=== PATIENT | male | born 1965 | race Caucasian/White ===

== ENCOUNTER 2019-04-01 13:08 | Inpatient (IN) | payer OTHER ==
[~2019-04-01] VITALS: Ht 177.8 cm; Wt 70.3 kg
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
--- NOTE | 2019-04-01 13:45 | NUR ---
SEEN AND EXAMINED BY DR. DAVISON.
[2019-04-01] MEDS ORDERED: QUET300T2 PO (13:57)
[2019-04-01] MEDS ORDERED: ALPR2TAB7 PO (13:57)
[2019-04-01] MEDS ORDERED: PANTOPRAZOLE 80 MG in IV NS 0.9% 100 ML IV ONE (14:00)
[2019-04-01] MEDS ORDERED: OCTREOTIDE 50 MCG/ML AMPUL IV ONE (14:00)
[2019-04-01] MEDS ORDERED: OCTREOTIDE 1,250 MCG in IV NS 0.9% 247.5 ML IV PRN (14:00)
[2019-04-01] MEDS ORDERED: IV NS 0.9% 1,000 ML BAG IV ONE (14:00)
[2019-04-01] MEDS ORDERED: OCTREOTIDE 1,250 MCG in IV NS 0.9% 250 ML IV ONE (14:00)
[2019-04-01] MEDS ORDERED: OCTREOTIDE 1,250 MCG in IV NS 0.9% 247.5 ML IV ONE (14:00)
--- NOTE | 2019-04-01 14:03 | NUR ---
IV LINE ESTABLISHED, LABS DRAWNED AND SENT TO LAB.
[2019-04-01 14:05] LABS: BASOPHILS # (AUTO) 0.1 /CMM (0.0-0.2); BASOPHILS % (AUTO) 1.3 % (0.0-2.0); EOSINOPHILS % (AUTO) 3.4 % (0.0-6.0); HEMATOCRIT 30 % (39-51); HEMOGLOBIN 9.3 g/dL (13.5-17.5); LYMPHOCYTES % (AUTO) 24.6 % (20.0-44.0); MEAN CORPUSCULAR HGB CONC 31 g/dl (31.0-36.0); MEAN CORPUSCULAR VOLUME 74 fL (80-96); MONOCYTES # (AUTO) 0.4 /CMM (0.1-1.30); MONOCYTES % (AUTO) 9.3 % (2.0-12.0); NEUTROPHILS # (AUTO) 2.6 /CMM (1.8-8.9); NEUTROPHILS % (AUTO) 61.4 % (43.0-81.0); PLATELET COUNT (AUTO) 340 /CMM (150-450); RED BLOOD CELL COUNT(AUTO) 4.03 MIL/uL (4.5-6.0); WHITE BLOOD COUNT (AUTO) 4.2 K/uL (4.3-11.0)
[2019-04-01] MEDS ORDERED: PANTOPRAZOLE 40 MG VIAL ONE (14:06)
[2019-04-01 14:19] LABS: CALCIUM, SERUM 8.5 mg/dL (8.5-10.1); CREATININE 0.7 mg/dL (0.6-1.3); POTASSIUM 3.9 mmol/L (3.5-5.1)
[2019-04-01 14:28] LABS: ALBUMIN 3.3 g/dL (3.4-5.0); BILIRUBIN,DIRECT 0.1 mg/dL (0.0-0.2); BILIRUBIN,TOTAL 0.3 mg/dL (0.2-1.0); TOTAL PROTEIN, SERUM 6.7 g/dL (6.4-8.2)
[2019-04-01] MEDS ORDERED: PANTOPRAZOLE 40 MG VIAL IV ONE (14:30)
[2019-04-01] MEDS ORDERED: PANTOPRAZOLE 80 MG in IV NS 0.9% 500 ML IV ONE (14:30)
--- NOTE | 2019-04-01 15:25 | NUR ---
CALLED [facility]. 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
--- NOTE | 2019-04-01 15:53 | NUR ---
CALLED [facility] FOR TELE BED
[2019-04-01] MEDS ORDERED: QUET25TA PO ×2 (15:55)
[2019-04-01] MEDS ORDERED: THIA100T74 PO (15:55)
[2019-04-01] MEDS ORDERED: FOLI1TAB16 PO (15:55)
[2019-04-01] MEDS ORDERED: ALLO100T PO (15:55)
[2019-04-01] MEDS ORDERED: PANT40TA2 PO (15:55)
[2019-04-01] MEDS ORDERED: MULT-447 PO (15:55)
--- NOTE | 2019-04-01 16:38 | NUR ---
REPORT GIVEN TO CHRISTA MOMIN FOR DAVID.
--- NOTE | 2019-04-01 17:02 | NUR ---
FUNDRAISING DIRECTORICING MACHINE OPERATOR NOTES Received Patient from ER via [facility]. Patient ambulatory. Patient resting and asleep in bed at this time. A/O x 4. VS stable with no acute distress. Breathing even and unlabored on room air with no respiratory distress. No signs and symptoms of pain. Skin intact. 20g PIV on RIGHT WRIST clean, dry, intact and flushing well. Sandostatin running at 10ml/hr. All belongings accounted and signed for and placed in chart. Safety precautions in place. Bed locked and set to lowest position with side rails x 2 up. Will continue to monitor.
[2019-04-01] MEDS ORDERED: ZOLPIDEM TARTRATE 5 MG TABLET PO PRN (17:30)
[2019-04-01] MEDS ORDERED: Z GUARD REMEDY 2 OZ OINT TP PRN (17:30)
[2019-04-01] MEDS ORDERED: ACETAMINOPHEN 325 MG TABLET PO PRN (17:30)
[2019-04-01] MEDS ORDERED: MAGNESIUM HYDROXIDE 30 ML UDC PO PRN (17:30)
[2019-04-01] MEDS ORDERED: ONDANSETRON HCL/PF 4 MG/2 ML VIAL IVP PRN (17:30)
[2019-04-01 18:55] VITALS: BP 115/81
--- NOTE | 2019-04-01 19:30 | NUR ---
RECEIVED PATIENT IN BED ASLEEP, EASILY AROUSABLE. AO X 3, ABLE TO MAKE NEEDS KNOWN. NO ACUTE DISTRESS NOTED. DENIES ANY PAIN AT THIS TIME. IV SITE PATENT, INTACT; IVF INFUSING ORDERED.SAFETY REMINDERS GIVEN. ON LOW BED WITH BILATERAL UPPER SIDE RAILS UP. CALL EDEN WITHIN EASY REACH. WILL CONTINUE TO MONITOR.
[2019-04-01] MEDS: PANTOPRAZOLE 40 MG VIAL IV SCH (19:42)
[2019-04-01 20:00] VITALS: BP 121/74
--- NOTE | 2019-04-01 20:02 | NUR ---
LIFE SCIENCES MANAGERSIGNAL INTELLIGENCE/ELECTRONIC WARFARE NOTES Patient resting and asleep in bed. A/O x 4. VS stable with no acute distress. Breathing even and unlabored on room air with no respiratory distress. No signs and symptoms of pain. Skin intact. Tele monitor in place and operational. SR with HR-94. 20g PIV on RIGHT WRIST clean, dry, intact and flushing well. Sandostatin running at 10ml/hr. Safety precautions in place. Bed locked and set to lowest position with side rails x 2 up. Will endorse plan of care to oncoming shift. Addendum: 04/01/19 at 2037 by ALEJANDRO DAIGLE RN LIFE SCIENCES MANAGER CLOSING NOTES
[2019-04-01 20:11] VITALS: BP 121/74
[2019-04-01] MEDS: IV NS 0.9% 1,000 ML IV PRN (21:37)
[2019-04-01] MEDS: QUETIAPINE FUMARATE 100 MG TABLET PO SCH (21:53)
[2019-04-02] VITALS (8 sets, daily range): BP systolic 102–125; BP diastolic 56–79
--- NOTE | 2019-04-02 06:00 | NUR ---
PATIENT ASLEEP, EASILY AROUSABLE. RESPIRATIONS EVEN. NO SIGNS OF PAIN NOTED. DUE MEDS GIVEN WITH NO ASE NOTED. NEEDS ATTENDED. PATIENT REFUSED TO BE WASHED. SAFETY PRECAUTIONS AND COMFORT MEASURES IN PLACE. WILL GIVE REPORT TO DAY SHIFT FOR CONTINUITY OF CARE.
[2019-04-02 06:21] LABS: BASOPHILS # (AUTO) 0.1 /CMM (0.0-0.2); BASOPHILS % (AUTO) 1.5 % (0.0-2.0); EOSINOPHILS % (AUTO) 5.3 % (0.0-6.0); HEMATOCRIT 31 % (39-51); HEMOGLOBIN 9.7 g/dL (13.5-17.5); LYMPHOCYTES # (AUTO) 0.9 /CMM (0.8-4.8); LYMPHOCYTES % (AUTO) 24.7 % (20.0-44.0); MEAN CORPUSCULAR HGB CONC 31 g/dl (31.0-36.0); MEAN CORPUSCULAR VOLUME 75 fL (80-96); MONOCYTES # (AUTO) 0.4 /CMM (0.1-1.30); NEUTROPHILS % (AUTO) 56.5 % (43.0-81.0); PLATELET COUNT (AUTO) 316 /CMM (150-450); RED BLOOD CELL COUNT(AUTO) 4.16 MIL/uL (4.5-6.0); WHITE BLOOD COUNT (AUTO) 3.5 K/uL (4.3-11.0)
[2019-04-02] MEDS: PANTOPRAZOLE 40 MG VIAL IV SCH ×2 (06:23→17:41)
[2019-04-02 06:39] LABS: CALCIUM, SERUM 8.3 mg/dL (8.5-10.1); CREATININE 0.7 mg/dL (0.6-1.3); MAGNESIUM 1.6 mg/dL (1.8-2.4); PHOSPHORUS 3.6 mg/dL (2.5-4.9); POTASSIUM 4.2 mmol/L (3.5-5.1)
--- NOTE | 2019-04-02 08:00 | NUR ---
RN NOTES RECEIVED PATIENT RESTING IN THE BED, PATIENT HAS NO ACUTE RESPIRATORY DISTRESS, V/S STABLE., RIGHT HAND INFUSING NS AT 100 ML/HR, AND SANDOSTATIN 10 ML/HR INTACT. PATIENT HAS EDEMA BOTH HANDS, USING URINAL. CALL LIGHT WITHIN TO REACH, SAFETY PRECAUTION MAINTAINED ALL THE TIME.
[2019-04-02] MEDS: LORAZEPAM INJ 2 MG/ML VIAL IV PRN ×4 (08:43→23:21)
--- NOTE | 2019-04-02 08:43 | NUR ---
RN NOTES ADMINISTERED ATIVAN 1 MG/ML IV PUSH FOR ANXIETY, V/S TAKEN BP 118/76, P- 76, CONTINUED MONITORING.
--- NOTE | 2019-04-02 09:30 | NUR ---
RN NOTES SEEN PATIENT BY TRACY RODRIGUEZ MD, NEW ORDER IS CHANGE ON ADVANCE DIET AT THIS TIME. ORDER TAKEN AND CARRIED OUT.
[2019-04-02] MEDS: HYDROCODONE/APAP 5/325MG 1 EACH TABLET PO PRN ×3 (10:32→20:06)
[2019-04-02] MEDS: Magnesium 1GM/D5W 100ML PREMIX 100 ML IV SCH ×2 (10:32→12:30)
--- NOTE | 2019-04-02 10:33 | NUR ---
RN NOTES ADMINISTERED NARCO 5/325 MG PO PRN FOR GENERALIZED PAIN / PER PATIENT REQUEST, V/S STALE. ALSO INFUSING MG 100 ML/HE INTACT ON RIGHT HAND. CONTINUED MONITORING.
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
--- NOTE | 2019-04-02 12:32 | NUR ---
RN NOTES ADMINISTERED ATIVAN 2 MG/ML IV PUSH FOR ANXIETY PER PATIENT REQUEST, PATIENT EATING LUNCH AT THIS TIME. SAFETY PRECAUTION MAINTAINED ALL THE TIME.
--- NOTE | 2019-04-02 13:43 | NUR ---
TONYA received a call back from Andre at [facility] informing SW that they are waiting for bed availability so they can accept the pt. Andre requested for TONYA to fax H&P. TONYA faxed H&P to Andre at .
--- NOTE | 2019-04-02 15:22 | NUR ---
RN NOTES ADMINISTERED NARCO 5/325 MG PO PRN FOR GENERALIZED PAIN / PER PATIENT REQUEST, V/S TAKEN BP 125/76, P-65, CONTINUED MONITORING.
[2019-04-02] MEDS: IV NS 0.9% 1,000 ML IV PRN (16:01)
--- NOTE | 2019-04-02 18:50 | NUR ---
RN NOTES ADMINISTERED ATIVAN 2 MG/ML IV PUSH FOR ANXIETY, WITHDRAWAL, V/S STABLE BP-112/74, P-78, CONTINUED MONITORING. INFUSING NS AT 100 ML/HR ON LEFT FA INTACT. CALL LIGHT WITHIN TO REACH, ENDORSED ONCOMING NURSE FOR PLAN OF CARE.
--- NOTE | 2019-04-02 19:05 | NUR ---
RN MS OPENING NOTES RECEIVED PATIENT IN BED AWAKE ALERT AND ORIENTED X4, RESPIRATIONS EVEN AND UNLABORED WITH EQUAL RISE AND FALL OF CHEST,DENIES ANY PAIN OR DISCOMFORT AT THIS TIME, IV SITE TO LEFT FA #22 G INTACT AND PATENT , NO REDNESS, NO INFILTRATION PRESENT, IVF RUNNING ORDERED, ORIENTED TO STAFF AND CALL LIGHT AND KEPT WITHIN REACH, SAFETY PRECAUTIONS IN PLACE, LOW BED AND LOCKED, PT STATES " IM GOING THROUGH ALCOHOL WITHDRAWAL" DISCUSSED PLAN OF CARE, ALSO MADE AWARE OF BED ALARM FOR SAFETY PRECAUTIONS, PATIENT STATES " NO I WILL CALL YOU". REMINDED PATIENT TO USE CALL LIGHT FOR ASSISTANCE, FLUIDS OFFERED, URINAL OFFERED, ALL NEEDS ATTENDED AT THIS TIME, WILL CONTINUE TO MONITOR.
--- NOTE | 2019-04-02 20:06 | NUR ---
RN MS NOTES PATIENT COMPLAINT OF PAIN GENERALIZED STATES 08/30 REQUESTING FOR NORCO VS WNL PRN NORCO GIVEN ORDERED. WILL CONTINUE TO MONITOR FOR EFFECTIVENESS
[2019-04-02] MEDS: QUETIAPINE FUMARATE 100 MG TABLET PO SCH (21:20)
--- NOTE | 2019-04-02 23:39 | NUR ---
RN MS NOTES ATIVAN PRN WAS GIVEN REQUESTED BY PATIENT FOR ALCOHOL WITHDRAWAL. WILL CONTINUE TO MONITOR FOR EFFECTIVENESS.
--- NOTE | 2019-04-03 00:39 | NUR ---
RN MS NOTES PATIENT IS SLEEPING ATIVAN EFFECTIVE.
[2019-04-03] MEDS: HYDROCODONE/APAP 5/325MG 1 EACH TABLET PO PRN (02:27)
--- NOTE | 2019-04-03 02:27 | NUR ---
RN MS NOTES PATIENT COMPLAIN OF GENERALIZED PAIN 10/10 REQUESTING FOR NORCO VS WNL NORCO PRN GIVEN ORDERED WILL CONTINUE TO MONITOR.
--- NOTE | 2019-04-03 02:37 | NUR ---
RN MS NOTES PER DAY NURSE REPORT INFORMED GELY IF OKAY TO START IV ACCESS TO FOOT PATIENT IS A HARD STICK,PER GELY OK TO START IV. ORDER NOTED AND CARRIED OUT AT THIS TIME ATTEMPTED TO START IV TO BOTH UPPER ARM UNSUCCESSFUL IV SITE TO LEFT FOOT #20 G .
--- NOTE | 2019-04-03 03:49 | NUR ---
RN MS NOTES ROXANN EFFECTIVE PATIENT IS SLEEPING AT THIS TIME
[2019-04-03] MEDS: PANTOPRAZOLE 40 MG VIAL IV SCH (05:40)
[2019-04-03] MEDS: IV NS 0.9% 1,000 ML IV PRN (06:23)
[2019-04-03] MEDS: LORAZEPAM INJ 2 MG/ML VIAL IV PRN (06:37)
--- NOTE | 2019-04-03 06:37 | NUR ---
RN MS NOTES PATIENT REQUESTING FOR ATIVAN FOR WITHDRAWAL SYMPTOMS PRN ATIVAN GIVEN ORDERED.
--- NOTE | 2019-04-03 06:58 | NUR ---
RN MS CLOSING NOTES PATIENT IN BED AWAKE ALERT AND ORIENTED X4, RESPIRATIONS EVEN AND UNLABORED WITH EQUAL RISE AND FALL OF CHEST,DENIES ANY PAIN OR DISCOMFORT AT THIS TIME, IV SITE TO LEFT FA #22 G INTACT AND PATENT BUT NOTED WITH SLIGHT LEAKING, LEFT FOOT #20 G INTACT AND PATENT , NO REDNESS, NO INFILTRATION PRESENT, IVF RUNNING ORDERED, CALL LIGHT KEPT WITHIN REACH, SAFETY PRECAUTIONS IN PLACE, LOW BED AND LOCKED,BED ALARM FOR SAFETY PRECAUTIONS IN PLACE, FLUIDS OFFERED, URINAL AND TOILETING OFFERED, ALL NEEDS ATTENDED AT THIS TIME, WILL CONTINUE TO MONITOR AND ENDORSE TO NEXT SHIFT.
--- NOTE | 2019-04-03 07:30 | NUR ---
ms rn received on bed, awake,alert,oriented x3,not in any form of distress, respirations even and unlabored,no sob noted, lungs are clear,abdomen soft, positive boel sounds,denies pain at this time, will monitor patient.
[2019-04-03 08:00] VITALS: BP 107/65
[2019-04-03] MEDS: Magnesium 1GM/D5W 100ML PREMIX 100 ML IV SCH ×2 (10:40→12:01)
--- NOTE | 2019-04-03 10:40 | NUR ---
ms rn was seen by dr. cholo owusu/ anu to go home today.
--- NOTE | 2019-04-03 13:00 | NUR ---
ms rn patient went home w/ discharge instructions shant
== END 2019-04-03 13:00 | disposition home or self-care (01) | DRG 253 ==
LOC: ER 13:10 → TELE 16:26 → MED 04-02 11:55
PROVIDERS: ADMIT Nurse Practitioner Acute Care
DX: K92.2 Gastrointestinal hemorrhage, unspecified (principal); E87.0 Hyperosmolality and hypernatremia; E44.1 Mild protein-calorie malnutrition; N28.1 Cyst of kidney, acquired; F10.10 Alcohol abuse, uncomplicated; D50.9 Iron deficiency anemia, unspecified; K76.9 Liver disease, unspecified; Z59.0 Homelessness; M10.9 Gout, unspecified
CPT/HCPCS: 36415; 71045-TC; 76700-TC; 80048-TC; 80061-TC; 80076-TC; 83690-TC; 83735-TC; 84100-TC; 85025-TC; 85730-TC; 86850-TC; 87081-TC; C9113; G0378; J2060; J2354; J3475; J7030; J7050

== ENCOUNTER 2024-10-15 18:54 | Emergency (ER) | payer OTHER ==
[~2024-10-15] VITALS: Ht 170.2 cm; Wt 70.3 kg
[~2024-10-15 18:54] MED LIST: ALLO100T PO; FOLI1TAB16 PO; MULT-447 PO; PANT40TA2 PO; QUET25TA PO; THIA100T74 PO
[2024-10-15 22:49] VITALS: TEMP 98.1
[2024-10-16 04:32] VITALS: BP 127/68; O2SAT 98
== END 2024-10-16 04:32 | disposition home or self-care (01) ==
LOC: ER 18:55
DX: F10.129 Alcohol abuse with intoxication, unspecified (principal); Z79.899 Other long term (current) drug therapy; Z59.00 Homelessness unspecified; Y90.9 Presence of alcohol in blood, level not specified